=== PATIENT | female | born 1975 | race Two or more races ===

== ENCOUNTER 2024-01-30 07:01 | Emergency (ER) | payer MEDICAID, SELFPAY ==
[2024-01-30 07:28] VITALS: BP 128/79; PULSE 71; RESP 19; TEMP 37.2; O2SAT 96; BMI 31.1
--- NOTE | 2024-01-30 07:55 | PD.EDRME ---
Rapid Medical Screening Exam RME Arrival date/time: 01/30/24 07:01 This is a 48-year-old female that comes to the emergency room with complaints of abdominal pain that started this morning. Patient denies fever, chills, nausea, vomiting, and diarrhea. Patient denies urinary symptoms. Patient states most of her pain is left mid./lower quadrant. Patient denies sick contacts at home. Patient has a history of diabetes. Patient Turkmen-speaking only. I have greeted and performed a focused initial assessment of this patient. Initial appropriate labs ordered at this time. A comprehensive ED assessment and evaluation of the patient and analysis of all test and completion of medical decision making process will be conducted by additional ED provider. Chief Complaint: Abdominal Pain Time Seen by Provider: 01/30/24 07:10 Vital signs: Vital Signs Temperature 98.9 F 01/30/24 07:28 Pulse Rate 71 01/30/24 07:28 Respiratory Rate 19 01/30/24 07:28 Blood Pressure 128/79 01/30/24 07:28 Pulse Oximetry (%) 96 01/30/24 07:28 Oxygen Delivery Method Room Air 01/30/24 07:28
[2024-01-30 08:31] LABS: Basophils % (Auto) 1 % (0-2.5); Eosinophils # (Auto) 0.2 Thou/mm3 (0.0-0.5); Eosinophils % (Auto) 2 % (0-10); Hematocrit 43.6 % (36.0-46.0); Hemoglobin 14.7 g/dL (12.0-16.0); Immature Granulocytes % (Auto) 0 % (0-0); Immature Granulocytes Auto 0.03 Thou/mm3 (0.00-0.00); Lymphocytes # (Auto) 2.5 Thou/mm3 (1.0-4.8); Lymphocytes % (Auto) 30 % (10-50); Mean Corpuscular HGB Conc 33.7 g/dl (31.0-37.0); Mean Corpuscular Hemoglobin 28.9 pg (25.0-35.0); Mean Corpuscular Volume 86 fL (80-100); Monocytes # (Auto) 0.6 Thou/mm3 (0.0-0.8); Monocytes % (Auto) 7 % (0-12); Neutrophils % (Auto) 60 % (37-80); Nucleated Red Blood Cell % 0 /100 WBC (0); Platelet Count 148 Thou/mm3 (140-440); RDW Standard Deviation 38.3 fL (36.4-46.3); Red Blood Count 5.08 Miln/mm3 (4.00-5.20); White Blood Count 8.2 Thou/mm3 (3.6-11.0)
[2024-01-30 08:37] LABS: Collection Type, Urine Voided
[2024-01-30 08:38] LABS: Alanine Aminotransferase 26 U/L (10-49); Albumin, Serum 4.7 gm/dL (3.5-5.0); Albumin/Globulin Ratio 1.5 (1.2-2.2); Alkaline Phosphatase 133 U/L (46-116); Anion Gap 6 (7-16); Aspartate Amino Transferase 24 U/L (0-34); BUN/Creatinine Ratio 28 Ratio (12-20); Bilirubin,Total 0.5 mg/dL (0.3-1.2); Blood Urea Nitrogen 17 mg/dL (9-23); Calcium 9.6 mg/dL (8.3-10.6); Calcium (Corrected) 9.6 mg/dL (8.5-10.1); Carbon Dioxide 28.2 mMol/L (20.0-31.0); Chloride 104 mMol/L (98-107); Creatinine (Component) 0.6 mg/dL (0.6-1.3); Estimated Creatinine Clearance 94.5 mL/min (>60); Globulin 3.1 gm/dL (2.3-3.5); Glucose 170 mg/dL (74-106); Lipase 40 U/L (12-53); Osmolality,Calculated 281 (275-295); Potassium 4.1 mMol/L (3.4-5.1); Sodium 138 mMol/L (136-145); Total Protein 7.8 gm/dL (5.7-8.2); eGFR > 60 See Note
[2024-01-30 08:59] LABS: HCG,Qualitative Serum Negative
[2024-01-30 09:08] LABS: Bacteria,Urine Rare; Bilirubin,Urine Negative (Negative); Blood,Urine Negative (Negative); Clarity,Urine Clear (Clear/Hazy); Color,Urine Lt-Yellow (Lt Yel-Yel); Culture Indicated,Urine Not Indicated; Glucose, Urine 4+ (Negative); Ketones,Urine Negative (Negative); Leukocyte Esterase,Urine Negative (Negative); Nitrite,Urine Negative (Negative); Protein,Urine Negative (Neg - Trace); RBC,Urine 1 /hpf (0-3); Specific Gravity,Urine 1.016 (1.001-1.035); Squamous Epithelial Cell,Urine 5 /hpf (0-5); Urobilinogen,Urine Negative mg/dL (0.0-1.0); WBC,Urine 10 /hpf (0-5)
--- NOTE | 2024-01-30 09:27 | PC.NURSE ---
Pt. here from home to bed 16, pt. states she has left upper abdominal quadrant pain that started at 6 this morning. Pt. states she has a DANIELLE as well. Pt. denies any vomiting, denies any nausea. Warm blanket given.
[2024-01-30 10:21] VITALS: BP 117/69; PULSE 63; RESP 17; TEMP 36.9; O2SAT 95
--- NOTE | 2024-01-30 10:22 | XR_ITS ---
Examination: AP chest single view Technique: AP portable semiupright chest single view Exam date and time: January 30, 2024 1126 hrs. Comparison February 01, 2008 Indications: Onset chest pain today Findings: Normal heart size Lungs are clear The osseous structures are intact Impression: No active disease
--- NOTE | 2024-01-30 10:22 | EKG_ITS ---
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
[2024-01-30] MEDS: FAMOTIDINE 20 MG TABLET PO (10:39)
[2024-01-30] MEDS: MG HYD/AL HYD/SIME (Maalox Reg) SUSP 30 ML UDC PO (10:40)
[2024-01-30 10:49] LABS: Troponin I < 0.002 ng/mL (0.0-0.045)
[2024-01-30] MEDS: cefTRIAXone/D5w 1gm IV premix 50 ML IV (10:55)
--- NOTE | 2024-01-30 12:05 | XR_ITS ---
Examination: Abdomen sonogram, Limited Date and time of exam: January 30, 2024 1216 hrs. Indications: Epigastric pain onset today Technique: Real-time ingram scale transabdominal sonographic images of the upper abdomen obtained. Findings: Normal gallbladder Normal common bile duct 0.3 cm Pancreatic head 2.4 cm Liver 16 cm fatty infiltration Normal hepatopedal portal venous flow Patent IVC Impression: Normal gallbladder
[2024-01-30] MEDS: ONDANSETRON INJ 2 MG/ML INJ 2 ML 4 MG IV (12:51)
[2024-01-30 13:02] VITALS: BP 106/70; PULSE 62; RESP 16; TEMP 36.4; O2SAT 96
[2024-01-30 14:33] VITALS: BP 111/70; PULSE 64; RESP 17; TEMP 36.8; O2SAT 97
--- NOTE | 2024-01-30 14:48 | EDNOTE_ITS ---
ED Abdominal Pain RME/HPI General Chief Complaint: Abdominal Pain Stated complaint: LUQ ABD PAIN, DANIELLE Time seen by provider: 01/30/24 07:10 Arrival date/time: 01/30/24 07:01 Limitations: no limitations RME / HPI RME / HPI narrative: 01/30/24 07:01 This is a 48-year-old female that comes to the emergency room with complaints of abdominal pain that started this morning. Patient denies fever, chills, nausea, vomiting, and diarrhea. Patient denies urinary symptoms. Patient states most of her pain is left mid./lower quadrant. Patient denies sick contacts at home. Patient has a history of diabetes. Patient [place] African-speaking only. I have greeted and performed a focused initial assessment of this patient. Initial appropriate labs ordered at this time. A comprehensive ED assessment and evaluation of the patient and analysis of all test and completion of medical decision making process will be conducted by additional ED provider. DR. KINGSLEY GONZALEZ ED EVALUATION: 48 year old female with history of x4 otherwise no other chronic medical history presents to the ED for complaint of abdominal pain beginning at 06:00 am today. Pain described as sharp stabbing in sensation that is located most to the epigastric region, rating as moderate- severe. Pain exacerbated with taking a deep breath, no reported modifying factors. Denies any history of similar pain. Denies fevers, chills, sweats, chest pain, cough, shortness of breath, n/v/d, or urinary symptoms. Related Data Previous Rx's ?Medication ?Instructions ?Recorded aluminum-mag hydroxide-simethicone 10 ml PO TID PRN indigestion 01/30/24 400 mg-400 mg-40 mg/5 mL oral susp #3,000 mL (Antacid Maximum Strength) famotidine 20 mg tablet (Pepcid) 20 mg PO BID #20 tabs 01/30/24 sucralfate 1 gram tablet (Carafate) 1 g PO TID 10 days #30 tabs 01/30/24 Allergies Allergy/AdvReac Type Severity Reaction Status Date / Time No Known Allergies Allergy Verified 07/17/19 02:15 Review of Systems Review of Systems Narrative Review of Systems: GEN: No fever, no chills, no weight loss EYES: No discharge, no visual changes, no pain HEENT: No ear pain, no congestion, no sore throat PULM: No shortness of breath, no cough, no congestion CV: No chest pain, no dyspnea on exertion, no palpitations GI: No nausea, no vomiting, no diarrhea, +pain, no constipation : No frequency, no urgency, no dysuria MUSC/SKEL: No joint pain, no back pain SKIN: No rash PSYCH: No hallucinations, no depression HEME/LYMPH: No easy bleeding or bruising tendencies NEURO: No weakness, no headache Past Medical History Past Medical History NEUROLOGIC: Negative Neurological Disorders CARDIAC: Negative Cardiac Disorders or Congestive Heart Failure RESPIRATORY: Negative Chronic Obstructive Pulmonary Disease (COPD) GASTROINTESTINAL: Negative Gastrointestinal Disorders GENITOURINARY: Negative Genitourinary Disorders or Renal Disease MUSCULOSKELETAL: Negative Musculoskeletal Disorders ENDOCRINE: Positive Endocrine Disorders and Diabetes Mellitus Type 2; Negative Diabetes Mellitus Type 1 HEMATOLOGIC: Negative Blood Disorders Surgical History SURGICAL: Positive Section (X4) Social History SMOKING STATUS: Never smoker ED Exam General Limitations: Present no limitations General appearance: Present alert and in no apparent distress Head Head exam: Present atraumatic, normocephalic and normal inspection Eye Eye exam: Present normal appearance, PERRL and EOMI ENT ENT exam: Present normal exam, normal oropharynx and mucous membranes moist Neck Neck exam: Present normal inspection, full ROM and trachea midline Chest Chest inspection: Present normal inspection and symmetric chest wall rise Respiratory Respiratory exam: Present normal lung sounds bilaterally Cardiovascular Cardiovascular exam: Present regular rate, normal rhythm and normal heart sounds Abdominal Exam Abdominal exam: Present soft, tenderness (moderate epigastric tenderness to palpation) and normal bowel sounds Extremities Exam Extremities exam: Present normal inspection and full ROM Back Exam Back exam: Present normal inspection and full ROM Neurological Exam Neurological exam: Present alert, oriented X3 and CN II-XII intact Psychiatric Psychiatric exam: Present normal affect and normal mood Skin Skin exam: Present warm, dry, intact and normal color Course Quality Measures none Orders Category Date Time Status EKG (ED ONLY) *Do not use* NOW Care 01/30/24 10:22 Completed EKG (ED Only) Stat Exams 01/30/24 10:22 Draft US gall bladder Stat Exams 01/30/24 12:05 Completed XR chest 1V portable Stat Exams 01/30/24 10:22 Completed CBC Stat Lab 01/30/24 08:10 Completed Comprehensive Metabolic Panel Stat Lab 01/30/24 08:10 Completed HCG,Qualitative Serum Stat Lab 01/30/24 08:10 Completed Lipase Stat Lab 01/30/24 08:10 Completed Troponin I Stat Lab 01/30/24 08:10 Completed Urinalysis, C/S if Indicated Stat Lab 01/30/24 08:30 Completed Famotidine [Pepcid] Med 01/30/24 10:22 Discontinued 20 mg PO X1 ONE Morphine Inj Med 01/30/24 12:06 Discontinued 2 mg IVP Q30M PRN Ondansetron Inj [Zofran Inj] Med 01/30/24 12:06 Discontinued 4 mg IV X1 ONE cefTRIAXone/D5w 1gm IV premix [Rocephin/D5w 1gm IV Med 01/30/24 10:26 Discontinued premix] 50 ml IV X1 mg Hyd/Al Hyd/Trudy Susp [Maalox Susp] Med 01/30/24 10:22 Discontinued 30 ml PO X1 ONE Reevaluation(s) Reevaluation #1: Patient remains clinically stable throughout the emergency department visit. We reviewed all the results, analysis, and treatment plans. Patient is amenable to discharge. Strict return precautions were outlined. Patient was discharged in stable condition. Time: 14:00 Vital Signs Vital signs: Vital Signs Temperature 98.9 F 01/30/24 07:28 Pulse Rate 71 01/30/24 07:28 Respiratory Rate 19 01/30/24 07:28 Blood Pressure 128/79 01/30/24 07:28 Pulse Oximetry (%) 96 01/30/24 07:28 Oxygen Delivery Method Room Air 01/30/24 07:28 Pulse ox is 96% on room air which is adequate. Abdominal Pain MDM MDM Narrative MDM Narrative:: Fidelia Hung am scribing for and in the presence of Dr. Bergeron. Patient data External records reviewed:: [facility] previous records (I reviewed ED visit on 01/27/2022 for abdominal pain ) Clinical information provided by:: patient Social determinants that could affect healthcare access:: none Patient has the following chronic illnesses:: No chronic hx How is presenting disease/condition affected by chronic disease/condition?: no chronic disease Evaluation data The following diagnostics were reviewed and interpreted by me:: lab results, radiology exam(s) and EKG tracing(s) (Sinus rhythm, rate 61, normal axis, no ectopy, no STEMI ) Lab and/or radiology exams considered but not ordered:: None Interpretation Summary: Ordering Physician: Ahsan Bergeron MD Date of Service: 01/30/24 Procedure(s): XR chest 1V portable Accession Number(s): [id number] cc: Preet Ash MD; Benjamin Christensen MD; Ahsan Bergeron MD~ Examination: AP chest single view Technique: AP portable semiupright chest single view Exam date and time: January 30, 2024 1126 hrs. Comparison February 01, 2008 Indications: Onset chest pain today Findings: Normal heart size Lungs are clear The osseous structures are intact Impression: No active disease Dictated By: Benjamin Christensen MD Signed By: <Electronically signed by Benjamin Christensen MD in OV> 01/30/24 1201 Ordering Physician: Ahsan Bergeron MD Date of Service: 01/30/24 Procedure(s): US gall bladder Accession Number(s): [id number] cc: Preet Ash MD; Benjamin Christensen MD; Ahsan Bergeron MD~ Examination: Abdomen sonogram, Limited Date and time of exam: January 30, 2024 1216 hrs. Indications: Epigastric pain onset today Technique: Real-time ingram scale transabdominal sonographic images of the upper abdomen obtained. Findings: Normal gallbladder Normal common bile duct 0.3 cm Pancreatic head 2.4 cm Liver 16 cm fatty infiltration Normal hepatopedal portal venous flow Patent IVC Impression: Normal gallbladder Dictated By: Benjamin Christensen MD Signed By: <Electronically signed by Benjamin Christensen MD in OV> 01/30/24 1348 Medications / Prescriptions Medications or Prescriptions considered but not ordered:: None Medication administrations:: Medication Administration History Discontinued Medications Al Hydrox/Mg Hydrox/Simethicone (Mg Hyd/Al Hyd/Trudy (Maalox Reg) Susp 30 Ml Udc) 30 ml PO X1 ONE Stop: 01/30/24 10:23 Last Admin: 01/30/24 10:40 Dose: 30 ml Documented By: ED Famotidine (Famotidine 20 Mg Tablet) 20 mg PO X1 ONE Stop: 01/30/24 10:23 Last Admin: 01/30/24 10:39 Dose: 20 mg Documented By: ED Ceftriaxone Sodium/Dextrose (Rocephin/D5w 1gm Iv Premix) 50 mls @ 100 mls/hr IV X1 ONE Stop: 01/30/24 10:55 Last Infusion: 01/30/24 12:00 Dose: Infused Documented By: Admin: 01/30/24 10:55 Dose: 100 mls/hr Documented By: ED Morphine Sulfate (Morphine Sulf Inj 10 Mg/Ml Vial) 2 mg IVP Q30M PRN PRN Reason: epigastric pain Ondansetron HCl (Ondansetron Inj 2 Mg/Ml Inj 2 Ml) 4 mg IV X1 ONE; Protocol Stop: 01/30/24 12:07 Last Admin: 01/30/24 12:51 Dose: 4 mg Documented By: EH See above Consultations Consultation(s) initiated? (list below): No Diagnosis Differential diagnosis abdominal pain: abdominal pain, calculus of kidney, gastroenteritis and other (Gastritis ) Most likely diagnosis given after review of the tests above:: Gastritis GERD Admission Indicated Admission indicated?: not indicated Admission Request Was there a request for admission?: No Disposition Plan Disposition Plan: Discharge Discharge Attestation Discharge Attestation: The patient and all family members were given an opportunity to ask questions and understood the discharge instructions. Discharge instructions specifically effects, indications for sooner follow up or return to the emergency department, and the expected course of current diagnosis. Patient condition: Stable Discharge Plan Plan Patient Disposition: HOME (Self Care) Disposition Comment: Stable for discharge Patient condition on transfer: Stable Prescriptions/Referrals Prescriptions/Med Rec: New famotidine [Pepcid] 20 mg tablet 20 mg PO BID Qty: 20 0RF sucralfate [Carafate] 1 gram tablet 1 g PO TID 10 Days Qty: 30 0RF alum-mag hydroxide-simeth [Antacid Maximum Strength] 400-400-40 mg/5 mL suspension 10 ml PO TID PRN (Reason: indigestion) Qty: 3000 0RF Referrals: Preet Ash MD [Primary Care Provider] - In 1 week Sapna Barraza MD [Physician] - In 1 week Problem List Clinical Impression: Gastritis, GERD (gastroesophageal reflux disease) Patient/Caregiver Discharge Instructions Diet Instructions: A diet for gastroesophageal reflux disease (GERD) can include: High-fiber foods: These can help you feel full and reduce overeating, which can contribute to heartburn. Examples include whole grains, root vegetables, and green vegetables. Alkaline foods: These foods have a higher pH and can help offset strong stomach acid. Examples include bananas, melons, and cauliflower. Watery foods: These foods can dilute and weaken stomach acid. Examples include celery, cucumber, and lettuce. Low-fat or fat-free dairy products: These can act as a temporary buffer between the stomach lining and stomach acid. Examples include skim or 1% milk, low-fat yogurt, and cheeses (<3 g fat per oz). Lean meats: These can be grilled, poached, broiled, or baked. Non-citrus fruits: These include apples, pears, and melons. Unsaturated fats: These can replace saturated and trans fats. Examples include oils such as olive, sesame, canola, sunflower, and safflower; avocados; nuts and seeds; soybean; and fatty fish such as salmon and trout. Low-acid fruits: These include watermelon, cantaloupe, and honeydew. A gastritis diet involves eating bland, non-acidic foods that are low in sugar, salt, and saturated fat. You should avoid foods that are: spicy, acidic, fried, fatty, processed, caffeinated, sugary, and deep-fried. Education Materials: GERD Lifestyle Changes, ED GERD (Adult), ED Gastritis (Adult), ED PEPTIC ULCER vs GASTRITIS Additional Instructions: Please return to the emergency department for any worsening or any further me dical problems You should call Dr. Barraza's office within the next several days. He is a specialist with the stomach. You should have a follow-up appointment with him as you may need to have a camera put down your mouth into your stomach to take pictures. Please follow-up with your primary care doctor within several days All of your tests today were pretty much normal. There is no evidence of gallbladder disease, pancreas disease, liver disease, kidney disease or any other organ dysfunction. It is unclear why you are having this pain but it could be related to your stomach and I feel like you may benefit from seeing Dr. Barraza Print Language: [place] Stand Alone Forms: Treva Award Info., Patient Portal Info Letter
[2024-01-30 15:12] VITALS: BP 106/70; PULSE 71; RESP 17; TEMP 36.9; O2SAT 98
== END 2024-01-30 15:12 | disposition home or self-care (01) ==
PROVIDERS: Nurse Practitioner Family; Emergency Provider Emergency Medicine; PCP Family Medicine
DX: K29.70 Gastritis, unspecified, without bleeding (principal); K21.9 Gastro-esophageal reflux disease without esophagitis; E11.9 Type 2 diabetes mellitus without complications
CPT/HCPCS: 36415; 71045; 76705; 80053; 81001; 83690; 84484; 84703; 85025; 93005; 96365; 96375; 99284; J0696; J2405; A9270

== ENCOUNTER 2024-10-18 17:57 | Emergency (ER) | payer MEDICAID, SELFPAY ==
[2024-10-18 18:11] VITALS: BP 120/77; PULSE 86; RESP 18; TEMP 37.2; O2SAT 96; BMI 28.9
--- NOTE | 2024-10-18 18:22 | PD.EDADULT ---
ED General RME/HPI General Chief complaint: General Adult/Misc Complain Stated complaint: SENT BY PCP W/ CT SCAN RESULTS OF HER HEAD Time Seen by Provider: 10/18/24 18:14 Arrival date/time: 10/18/24 17:57 This is a case of 49-year-old female who came in in the emergency room regarding the results of the CT scan of the head history of present illness started 3 days prior to arrival in the emergency room patient have numbness on the left side of the face seen by the primary care physician where they performed a CT scan of the head and it showed a 2 calcified lesion on the right side of the brain possible calcified meningiomas calcified granulomas in versus classified cysticercosis patient was advised to follow-up in ER for further evaluation and treatment patient denies any neurological symptoms denies any headache nausea vomiting dizziness blurring of vision numbness weakness or tingling sensation Limitations: no limitations Related Data Previous Rx's ?Medication ?Instructions ?Recorded aluminum-mag hydroxide-simethicone 10 ml PO TID PRN indigestion 01/30/24 400 mg-400 mg-40 mg/5 mL oral susp #3,000 mL (Antacid Maximum Strength) famotidine 20 mg tablet (Pepcid) 20 mg PO BID #20 tabs 01/30/24 Allergies Allergy/AdvReac Type Severity Reaction Status Date / Time No Known Allergies Allergy Verified 10/18/24 18:03 Review of Systems Review of Systems Systems Reviewed: All systems reviewed, normal except as documented Constitutional Constitutional: Reports system reviewed and no additional complaints, except as documented, Reports as per HPI, Denies chills, Denies fever(s), Denies frequent falls, Denies headache(s) and Denies weakness Eyes Eyes: Reports system reviewed and no additional complaints, except as documented, Reports as per HPI, Denies blurry vision, Denies change in vision, Denies decreased night vision and Denies loss of vision ENT Ears, Nose, Mouth, and Throat: Denies abnormal hearing, Denies disequilibrium, Denies dizziness, Denies headache(s) and Denies vertigo Cardiovascular Cardiovascular: Reports system reviewed and no additional complaints, except as documented, Reports as per HPI and Denies syncope Respiratory Respiratory: Reports system reviewed and no additional complaints, except as documented and Reports as per HPI Gastrointestinal Gastrointestinal: Reports system reviewed and no additional complaints, except as documented, Reports as per HPI, Denies abdominal pain, Denies nausea and Denies vomiting Musculoskeletal Musculoskeletal: Reports system reviewed and no additional complaints, except as documented, Reports as per HPI, Denies abnormal gait, Denies numbness and Denies tingling Neurologic Neurologic: Reports system reviewed and no additional complaints, except as documented, Reports as per HPI, Denies abnormal gait, Denies abnormal hearing, Denies abnormal movements, Denies abnormal speech, Denies behavioral changes, Denies burning sensations, Denies confusion, Denies convulsions, Denies disequilibrium, Denies dizziness, Denies localized weakness, Denies frequent falls, Denies headache(s), Denies lack of coordination, Denies loss of vision, Denies memory loss, Denies numbness, Denies other visual disturbances, Denies paresthesias, Denies radicular pain, Denies restless legs, Denies seizure-like activity, Denies sensory deficit, Denies syncope, Denies tingling, Denies tremor(s), Denies vertigo and Denies weakness Psychiatric Psychiatric: Denies behavioral changes, Denies confusion and Denies memory loss Past Medical History Past Medical History NEUROLOGIC: Negative Neurological Disorders CARDIAC: Negative Cardiac Disorders or Congestive Heart Failure RESPIRATORY: Negative Chronic Obstructive Pulmonary Disease (COPD) GASTROINTESTINAL: Negative Gastrointestinal Disorders GENITOURINARY: Negative Genitourinary Disorders or Renal Disease MUSCULOSKELETAL: Negative Musculoskeletal Disorders ENDOCRINE: Positive Endocrine Disorders and Diabetes Mellitus Type 2; Negative Diabetes Mellitus Type 1 HEMATOLOGIC: Negative Blood Disorders Surgical History SURGICAL: Positive Section (X4) Social History SMOKING STATUS: Never smoker ED Exam General Limitations: Present no limitations General appearance: Present alert, in no apparent distress and other (Patient is awake alert oriented not in distress nontoxic looking) Head Head exam: Present atraumatic, normocephalic and normal inspection Eye Eye exam: Present normal appearance, PERRL, EOMI and other (no pappiledem) ENT ENT exam: Present normal exam, normal oropharynx, mucous membranes moist and other (Normal HEENT exam) Neck Neck exam: Present normal inspection, full ROM, trachea midline and other (Negative for meningeal sign); Absent tenderness, meningismus, lymphadenopathy or thyromegaly Chest Chest inspection: Present normal inspection and symmetric chest wall rise; Absent tenderness Respiratory Respiratory exam: Present normal lung sounds bilaterally; Absent respiratory distress, wheezes, stridor, accessory muscle use or prolonged expiratory phase Cardiovascular Cardiovascular exam: Present regular rate, normal rhythm and normal heart sounds; Absent bradycardia, tachycardia, irregular rhythm, systolic murmur or diastolic murmur Abdominal Exam Abdominal exam: Present soft and normal bowel sounds Extremities Exam Extremities exam: Present normal inspection and full ROM Back Exam Back exam: Present normal inspection and full ROM Neurological Exam Neurological exam: Present alert, oriented X3, CN II-XII intact, normal gait, reflexes normal and other (Awake alert oriented x 4 no focal deficit GCS 15/15 steady gait memory intact no slurring speech no facial droop CN II to XII is normal motor or sensory reflex were normal negative Babinski); Absent motor sensory deficit Psychiatric Psychiatric exam: Present normal affect and normal mood Skin Skin exam: Present warm, dry, intact and normal color Course Quality Measures none Vital Signs Vital signs: Vital Signs Temperature 98.9 F 10/18/24 18:11 Pulse Rate 86 10/18/24 18:11 Respiratory Rate 18 10/18/24 18:11 Blood Pressure 120/77 10/18/24 18:11 Pulse Oximetry (%) 96 10/18/24 18:11 Oxygen Delivery Method Room Air 10/18/24 18:11 Oxygen saturation is 96% in room air Discharge Plan Plan Patient Disposition: HOME (Self Care) Patient condition on transfer: Stable Prescriptions/Referrals Prescriptions/Med Rec: No Action famotidine [Pepcid] 20 mg tablet 20 mg PO BID Qty: 20 0RF alum-mag hydroxide-simeth [Antacid Maximum Strength] 400-400-40 mg/5 mL suspension 10 ml PO TID PRN (Reason: indigestion) Qty: 3000 0RF Problem List Clinical Impression: Brain lesion Patient/Caregiver Discharge Instructions Education Materials: Anatomy of the Brain Additional Instructions: Follow-up with your primary care physician in 2 days for reevaluation and to be referred to neurologist for further evaluation and treatment of brain lesion to have MRI to rule out meningiomas calcified granulomas or calcified cysticercosis you can also return tomorrow here in the emergency room to have MRI for further evaluation and treatment of your brain lesion for any worsening symptoms or any emergent concerns such as numbness weakness tingling sensation unsteady gait blurring of vision call 911 or go to the nearest emergency room Print Language: Icelandic Stand Alone Forms: Treva Award Info., Patient Portal Info Letter PA/LYLY Supervising Physician BAO Supervising Physician: Dr. Renteria [facility] Narrative [facility] hospital course: This is a case of 49-year-old female who came in in the emergency room regarding the results of the CT scan of the head history of present illness started 3 days prior to arrival in the emergency room patient have numbness on the left side of the face seen by the primary care physician where they performed a CT scan of the head and it showed a 2 calcified lesion on the right side of the brain possible calcified meningiomas calcified granulomas in versus classified cysticercosis patient was advised to follow-up in ER for further evaluation and treatment patient denies any neurological symptoms denies any headache nausea vomiting dizziness blurring of vision numbness weakness or tingling sensation physical examination patient is awake alert oriented not in distress nontoxic looking PERRL EOM intact normal conjunctiva no pappiledema negative for meningeal sign neurological exam is normal awake alert oriented x 4 no focal deficit GCS 15/15 steady gait based on my physical examination and history patient symptoms do not need a urgent MRI she was advised to return tomorrow morning for MRI of the head here in the emergency room or she can go to the primary care physician to be referred to neurologist for further evaluation and treatment of brain lesion to rule out malignancy patient understood verbally the discharge instruction via camera machinist RN Godfrey for any worsening symptoms or any emergent concern call 911 or go to the nearest emergency room Patient was discharged with comfortable condition walking with stable gait. Patient verbalized no further complains explained diagnosis and answered patient question. Patient is comfortable with the proposed management plan including the need to follow up with his/her primary care physician and any specialist if applicable Discussed patient for any urgent condition or worsening sx, He/She needed to go to emergency room immediately or call 911. Patient acknowledge the responsibility to follow up as instructed and to monitor her/his symptoms. For any persistence of the symptoms for more than 3-5 days return precaution advised. Discussed the result of the test and was given printed discharge instruction Clinical Information Provided by patient Medical Records Reviewed [facility] Meds/Rx Considered, not Ordered None Describe details: None Labs/Rad/Tests considered, not Ordered None Describe details: None Chronic Illness/Social Conditions which may negatively complicate care or outcome(s)-explain: None or not applicable EKG EKG not done Lab Interpretation Labs: none Imaging Imaging interpretation: none Medication Administration(s) none Diagnosis Differential diagnosis: Brain lesion Differential dx and/or dx ruled out: Brain lesion Most likely dx, and/or detailed dx discussion: Brain lesion Dispositon Disposition: Discharge Home
== END 2024-10-18 18:34 | disposition home or self-care (01) ==
LOC: SERX 18:35
PROVIDERS: Emergency Provider Family Medicine; PCP Family Medicine
DX: G93.9 Disorder of brain, unspecified (principal)
CPT/HCPCS: 99281

== ENCOUNTER 2024-10-19 11:06 | Emergency (ER) | payer MEDICAID, SELFPAY ==
--- NOTE | 2024-10-19 | XR_ITS ---
Examination: MRI brain without intravenous contrast. Date and time of exam: October 19, 2024, 1309 hrs. Indications: Headaches 2 years. Technique: Multiple axial and sagittal images of the brain obtained. Siemens high-resolution 1.5 Jud short bore scanners utilized. Sagittal sections, T1-weighted, TR 500, TE 14, are performed. Axial sections proton-density and T2-weighted have been obtained. Inversion recovery axial images, TR 9, 260, TE 111, TI 2500. Diffusion weighted images, axial sections, TR 4800, TE 128, B value 1000 Axial sections, ADC map, TR 4800, TE 128 Findings: Enlargement of the sella turcica is not present. The optic chiasm and infundibular are not remarkable. Prepontine and interpeduncular cisterns are not enlarged. There is no localized enlargement of the medulla or adri. Fourth ventricle and cerebellar tonsils appear normal in position. No subacute area of hemorrhage density is seen. Mass in the cerebellopontine angle region is not evident. Globes symmetrical. Orbital musculature including medial lateral rectus muscles do not exhibit abnormality. Diffusion-weighted images demonstrate no focus of restricted diffusion.. Increased white matter signal not seen Mass effect upon the ventricular system is not identified. Impression: Negative for acute hemorrhage, mass effect or midline shift. No acute infarct. No focal mass lesion noted.
[2024-10-19 11:08] VITALS: BMI 25.5
[2024-10-19 11:46] VITALS: BP 112/72; PULSE 74; RESP 18; TEMP 36.9; O2SAT 96; BMI 30.8
--- NOTE | 2024-10-19 11:55 | EDNOTE_ITS ---
ED General RME/HPI General Chief complaint: General Adult/Misc Complain Stated complaint: RETURNED FOR MRI Time Seen by Provider: 10/19/24 11:53 Arrival date/time: 10/19/24 11:06 CC: Headache HPI for 2 years, was seen here yesterday but did not in the ER at the time when MRI was available now returns for MRI patient states she has had global body pain but denies any dizziness. Patient denies chest pain shortness of breath or difficulty breathing. Note patient had a recent MRI with a concern for cerebral mass. Related Data Previous Rx's ?Medication ?Instructions ?Recorded aluminum-mag hydroxide-simethicone 10 ml PO TID PRN in digestion 01/30/24 400 mg-400 mg-40 mg/5 mL oral susp #3,000 mL (Antacid Maximum Strength) famotidine 20 mg tablet (Pepcid) 20 mg PO BID #20 tabs 01/30/24 Allergies Allergy/AdvReac Type Severity Reaction Status Date / Time No Known Allergies Allergy Verified 10/19/24 11:12 Review of Systems Review of Systems Narrative Review of Systems: GEN: No fever, no chills, no weight loss EYES: No discharge, no visual changes, no pain HEENT: No ear pain, no congestion, no sore throat PULM: No shortness of breath, no cough, no congestion CV: No chest pain, no dyspnea on exertion, no palpitations GI: No nausea, no vomiting, no diarrhea, no pain, no constipation : No frequency, no urgency, no dysuria MUSC/SKEL: No joint pain, no back pain SKIN: No rash PSYCH: No hallucinations, no depression HEME/LYMPH: No easy bleeding or bruising tendencies NEURO: No weakness, + headache Past Medical History Past Medical History NEUROLOGIC: Negative Neurological Disorders CARDIAC: Negative Cardiac Disorders or Congestive Heart Failure RESPIRATORY: Negative Chronic Obstructive Pulmonary Disease (COPD) GASTROINTESTINAL: Negative Gastrointestinal Disorders GENITOURINARY: Negative Genitourinary Disorders or Renal Disease MUSCULOSKELETAL: Negative Musculoskeletal Disorders ENDOCRINE: Positive Endocrine Disorders and Diabetes Mellitus Type 2; Negative Diabetes Mellitus Type 1 HEMATOLOGIC: Negative Blood Disorders Surgical History SURGICAL: Positive Section (X4) Social History SMOKING STATUS: Never smoker ED Exam Narrative Physical exam: [General: Obese not in any acute distress Head normocephalic HEENT: Eyes pupils are PERRLA EOMs are intact mouth Cisne dry membranes uvula is midline swallow symmetrical phonation is normal although the subsystems of HEENT are within acceptable limits Neck is supple nontender Chest equal chest rise nontender to palpation Respiratory: Clear to auscultation no wheezes crackles or rubs CV: Rate rhythm is regular no murmurs rubs or clicks Abdomen is distended secondary to body habitus soft nontender no masses positive bowel sounds all 4 quadrants Back: No CVA tenderness no spinous process tenderness from cervical spine thoracic and lumbar spine Skin: Intact no petechiae rash induration ulceration or crepitus Extremities: Moving all extremity against resistance cap refill less than 2 seconds neurosensory intact Neuro: Awake alert oriented x3 Glascow coma 15 no focal deficits, cranial nerves II through XII grossly intact Course Quality Measures none Orders Category Date Time Status MRI Screening NOW Care 10/19/24 11:54 Active MR head/brain wo con Stat Exams 10/19/24 Completed Vital Signs Vital signs: Vital Signs Temperature 98.4 F 10/19/24 11:46 Pulse Rate 74 10/19/24 11:46 Respiratory Rate 18 10/19/24 11:46 Blood Pressure 112/72 10/19/24 11:46 Pulse Oximetry (%) 96 10/19/24 11:46 Oxygen Delivery Method Room Air 10/19/24 11:46 Discharge Plan Plan Patient Disposition: HOME (Self Care) Patient condition on transfer: Stable Prescriptions/Referrals Prescriptions/Med Rec: No Action famotidine [Pepcid] 20 mg tablet 20 mg PO BID Qty: 20 0RF alum-mag hydroxide-simeth [Antacid Maximum Strength] 400-400-40 mg/5 mL suspension 10 ml PO TID PRN (Reason: indigestion) Qty: 3000 0RF Referrals: Preet Ash MD [Physician] - In 1 week No Primary/Family,Physician [Primary Care Provider] - In 1 week Problem List Clinical Impression: Headache Patient/Caregiver Discharge Instructions Other Activity Instructions:: There is no mass or lesion in your head please follow-up with your primary care provider Education Materials: Self-Care for Headaches Print Language: Korean Stand Alone Forms: Treva Award Info., Patient Portal Info Letter PA/MARKETING SERVICES MANAGER Supervising Physician PA/MARKETING SERVICES MANAGER Supervising Physician: Misbah Vivas ENP MDM Clinical Information Provided by patient Medical Records Reviewed [facility] Meds/Rx Considered, not Ordered None Labs/Rad/Tests considered, not Ordered None Chronic Illness/Social Conditions Add or document further as needed: Head mass from previous imaging EKG EKG not done Imaging Provider imaging interpretation(s): MRI as interpreted by me read by radiology shows no acute finding requires emergent or immediate information. Diagnosis Differential diagnosis: Cerebral mass cerebral abscess. Dispositon Disposition: Discharge Home
== END 2024-10-19 16:59 | disposition home or self-care (01) ==
PROVIDERS: Emergency Provider Emergency Medicine
DX: R51.9 Headache, unspecified (principal)
CPT/HCPCS: 70551; 99284